=== PATIENT | male | born 1995 | race Caucasian/White ===

== ENCOUNTER 2016-09-17 11:23 | Emergency (ER) | payer OTHER ==
[2016-09-17 11:43] VITALS: RESP 18
[2016-09-17] MEDS ORDERED: NS 1,000 ML IV ONE ×2 (11:49→12:58)
[2016-09-17 12:33] LABS: % IMMATURE GRANULYOCYTES 0.4 % (0.0-1.1); ABSOLUTE IMMATURE GRANULOCYTES 0.05 10^3/uL (0.00-0.10); ADD DIFF? NO; ADD MORPH? NO; ADD SCAN? NO; ATYPICAL LYMPHOCYTE FLAG 10 (0-99); FRAGMENT RBC FLAG 0 (0-99); HEMATOCRIT 54.4 % (40.0-51.0); HEMOGLOBIN 17.7 g/dL (13.7-17.5); LEFT SHIFT FLG 0 (0-99); LIPEMIA HEMOLYSIS FLAG 80 (0-99); MEAN CELL HEMOGLOBIN 32.3 pg (27.9-34.1); MEAN CELL HEMOGLOBIN CONCENTR. 32.5 g/dL (32.4-36.7); MEAN CELL VOLUME 99.3 fL (81.5-99.8); MEAN PLATELET VOLUME 9.8 fL (8.7-11.7); PLATELET CLUMPS FLAG 0 (0-99); PLATELET COUNT 483 10^3/uL (150-400); RED BLOOD CELL COUNT 5.48 10^6/uL (4.40-6.38); RED CELL DISTRIBUTION WIDTH 12.3 % (11.5-15.2)
[2016-09-17 12:41] LABS: ANION GAP 31 mEq/L (8-16); CALCIUM 10.6 mg/dL (8.5-10.4); CARBON DIOXIDE 13 mEq/l (22-31); CHLORIDE 102 mEq/L (97-110); CREATININE 1.2 mg/dL (0.7-1.3); GLOMERULAR FILTRATION RATE > 60; GLUCOSE 126 mg/dL (70-100); POTASSIUM 4.4 mEq/L (3.5-5.2); SODIUM 146 mEq/L (134-144)
[2016-09-17] MEDS: levETIRAcetam 1,000 MG in NS 100 ML IV ONE ×2 (12:50→13:14)
--- NOTE | 2016-09-17 12:51 | EDPHY ---
H & P Stated Complaint: seizure - Personal History Current Tetanus/Diphtheria Vaccine: Yes Current Tetanus Diphtheria and Acellular Pertussis (TDAP): Yes Tetanus Vaccine Date: last 10 years - Medical/Surgical History Hx Asthma: No Hx Chronic Respiratory Disease: No Hx Diabetes: No Hx Cardiac Disease: No Hx Renal Disease: No Hx Cirrhosis: No Hx Alcoholism: No Hx HIV/AIDS: No Hx Splenectomy or Spleen Trauma: No Other PMH: concussions, Anxiety and seizures treated wt kepra - Social History Smoking Status: Current some day smoker Time Seen by Provider: 09/17/16 12:34 HPI/ROS: CHIEF COMPLAINT: Seizure HISTORY OF PRESENT ILLNESS: 21-year-old male history of seizure disorder, self discharged his Keppra a few months ago, states that he did not sleep well last evening and was consuming alcohol, this morning at breakfast he was sitting and had witnessed seizure, bit his tongue, generalized tonic-clonic movements, postictal. At the time I interviewed and examined states he is feeling 100% better. He has only complaint is abrasion to the right lateral tongue. No incontinence. No head injury. No back pain. No recent illness. PRIMARY CARE PROVIDER:neurologist in [place] and Dr. Rigo Gamez REVIEW OF SYSTEMS: A ten point review of systems was performed and is negative with the exception of the items mentioned in the HPI PAST MEDICAL & SURGICAL HISTORY: Seizure disorder SOCIAL HISTORY:no alcohol use last evening PHYSICAL EXAM (Prior to examination, patient consented to physical exam, hands were washed and my usual and customary physical exam procedures followed) 1) GENERAL: Well-developed, well-nourished, alert and oriented. Appears to be in no acute distress. 2) HEAD: Normocephalic, atraumatic 3) HEENT: Pupils equal, round, reactive to light bilaterally. Sclera anicteric. Nasopharynx, oropharynx, clear, no lesions.Right lateral tongue abrasion. Ears bilaterally with normal tympanic membranes. 4) NECK: Full range of motion, no meningeal signs. 5) LUNGS: Clear auscultation bilaterally, no wheezes, no rhonchi, no retractions. 6) HEART: Regular rate and rhythm, no murmur, no heave, no gallop. 7) ABDOMEN: No guarding, no rebound, no focal tenderness, negative McBurney's, negative [place]en[place]ro's, negative Rovsing's, negative peritoneal sign, 8) MUSCULOSKELETAL: Moving all extremities, no focal areas of tenderness, no obvious trauma. No peripheral edema or discoloration. 9) BACK: No CVA tenderness, no midline vertebral tenderness, no fluctuance, no step-off, no obvious trauma, no visual or palpable abnormality. 10) SKIN: No rash, no petechiae. 11) Psychiatric: Patient is oriented X 3, there is no agitation. 12) NEURO: Awake, alert, and oriented to person, place and time. Answers questions appropriately. There were no obvious focal neurologic abnormalities. No cerebellar dysfunction. Normal steady gait. Upper and lower extremities bilaterally with strength 5 / 5, reflexes 2+. DIFFERENTIAL DIAGNOSIS: in no particular include but limited to intracranial hemorrhage, medication noncompliance, seizure (Lay,Suha Francy) Constitutional: Initial Vital Signs Temperature (C) 36.8 C 09/17/16 11:39 Heart Rate 130 H 09/17/16 11:39 Respiratory Rate 18 09/17/16 11:39 Blood Pressure 144/95 H 09/17/16 11:39 O2 Sat (%) 96 09/17/16 11:39 O2 Delivery Mode Room Air Allergies/Adverse Reactions: No Known Allergies Allergy (Unverified 03/25/13 19:01) Home Medications: Medication Instructions Recorded Dextroamphetamine/Amphetamine 10 mg PO PRN 03/25/13 [Adderall 10 mg Tablet] Adderall 10 MG (RX) 10/28/15 Alprazolam 10/28/15 Propranolol HCl 10/28/15 levETIRAcetam [Keppra] 250 mg PO BID #40 tab 02/06/16 Medical Decision Making ED Course/Re-evaluation: 12:50 p.m.: This patient appears well, answering questions appropriately, not postictal. Does have a right lateral tongue abrasion which will be allowed to heal via secondary intention. He has been off of his Keppra for several months , discharged by the patient. Recommend he restart his usual regimen. Given loading dose in the emergency department. Recommend he get sleep when he returns home this afternoon. I suspect that the combination of medication noncompliance and poor sleep hygiene recently contributed to his breakthrough seizure. He feels comfortable being discharged. Discussed case with Dr. Priscilla Baum. At this time patient's vital signs recheck heart rate in the low 90s, systolic blood pressure 155. (Suha Chun) The patient was evaluated and managed by the physician recovery assistant. I have reviewed this chart and I agree with the findings and plan of care as documented , as indicated by my signature. I am the secondary supervising physician. ( Priscilla Baum) - Data Points Laboratory Results: Laboratory Results 09/17/16 11:25 09/17/16 11:25 Medications Given: Discontinued Medications Sodium Chloride (Ns) 1,000 mls @ 0 mls/hr IV ONCE ONE PRN Reason: Wide Open Stop: 09/17/16 11:50 Last Admin: 09/17/16 11:49 Dose: 1,000 mls Levetiracetam 1,000 mg/ Sodium (Chloride) 110 mls @ 440 mls/hr IV EDNOW ONE Stop: 09/17/16 13:02 Last Admin: 09/17/16 13:14 Dose: 110 mls Sodium Chloride (Ns) 1,000 mls @ 0 mls/hr IV ONCE ONE PRN Reason: Wide Open Stop: 09/17/16 12:59 Last Admin: 09/17/16 12:59 Dose: 1,000 mls Departure - Departure Disposition: Home, Routine, Self-Care Clinical Impression: Seizure Condition: Good Instructions: Epilepsy (ED) Additional Instructions: Take her Keppra as prescribed. Get some sleep. Referrals: Rigo Gamez MD [Medical Doctor] - 2-3 days, call for appt.
[2016-09-17 13:32] VITALS: BP 138/88; PULSE 95; TEMP 98.4; O2SAT 96
== END 2016-09-17 13:45 | disposition home or self-care (01) ==
LOC: EDUNIT#
DX: G40.909 Epilepsy, unspecified, not intractable, without status epilepticus (principal); F17.200 Nicotine dependence, unspecified, uncomplicated
CPT/HCPCS: 96365; J1953

== ENCOUNTER 2016-12-03 21:55 | Emergency (ER) | payer OTHER ==
--- NOTE | 2016-12-03 22:32 | EDPHY ---
H & P Time Seen by Provider: 12/03/16 22:21 HPI/ROS: CHIEF COMPLAINT: Right hand pain HISTORY OF PRESENT ILLNESS: This is a 21-year-old male presenting to the emergency department complaining of right hand pain after hitting a wooden fence yesterday night around 2100. Patient said he had increased swelling today with decreased movement, some abrasions to fingers. Reports tetanus up-to -date REVIEW OF SYSTEMS: Constitutional: No fever, no chills. Eyes: No discharge. No blurred vision Cardiovascular: No chest pain Musculoskeletal: No back pain. Right hand pain and swelling Skin: No rashes. Neurological: No headache. Smoking Status: Current some day smoker Physical Exam: General Appearance: Alert and no distress. Eyes: No pallor no injection. Neurology: No focal deficits. AAOx3. Acting appropriate Respiratory: Chest is nontender. Nonlabored respiratory effort Musculoskeletal: Neck is supple and nontender. Right hand swelling and tenderness noted to the 4th and 5th metacarpal abrasions noted to 3rd 4th and 5th digits. Decreased range of motion Extremities have full range of motion and are nontender. Skin: No rashes or lesions. Abrasions noted to 3rd 4th and 5th digits Constitutional: Initial Vital Signs Temperature (C) 36.7 C 12/03/16 21:56 Heart Rate 85 12/03/16 21:56 Respiratory Rate 18 12/03/16 21:56 Blood Pressure 119/70 12/03/16 21:56 O2 Sat (%) 95 12/03/16 21:56 O2 Delivery Mode Room Air Allergies/Adverse Reactions: No Known Allergies Allergy (Unverified 12/03/16 22:00) Home Medications: Medication Instructions Recorded Adderall 10 MG (RX) 10/28/15 Propranolol HCl 10/28/15 levETIRAcetam [Keppra] 250 mg PO BID #40 tab 02/06/16 oxyCODONE HCL/ACETAMINOPHEN 1 each PO PRN PRN #10 tablet 12/04/16 [Percocet 5-325 mg Tablet] Medical Decision Making Procedures: Procedure: reduction. The right 5th metacarpal was reduced using C-arm, no complications. Ortho glass splint placed. Post reduction the patient's neurovascular exam is normal. Post reduction x-ray demonstrates reduction shows improved alignment. The procedure was performed by myself. ED Course/Re-evaluation: Discussed the plan of care: X-ray of right hand positive for 5th metacarpal fracture displaced. Discussed with patient doing a post reduction and putting him in a splint to follow up with orthopedic hand specialist Differential Diagnosis: Other differential diagnosis considered but not limited to open fracture of metacarpal, and fracture of radius and metacarpal dislocation - Data Points Medications Given: Discontinued Medications Oxycodone/Acetaminophen (Percocet 5/325) 2 tab PO EDNOW ONE Stop: 12/04/16 00:03 Last Admin: 12/04/16 00:08 Dose: 2 tab Oxycodone/Acetaminophen (Percocet 5/325mg Prepack#4) 1 btl TAKEHOME EDNOW ONE Stop: 12/04/16 00:53 Last Admin: 12/04/16 01:06 Dose: 1 btl Departure - Departure Disposition: Home, Routine, Self-Care Clinical Impression: Fx metacarpal Condition: Good Instructions: Oxycodone/Acetaminophen (By mouth), Hand Fracture (ED), Boxer Fracture (ED) Additional Instructions: Discussed discharge instructions with patient 1. You given the number for orthopedic hand call on Monday for follow-up appointment 2. Leave ortho glass splint on hand until further evaluation 3. You can use ibuprofen as needed. Ice pack 15 minutes on every hour as needed for swelling 4. If any worsening symptoms increased swelling return to the ER Referrals: NONE *PRIMARY CARE P,. [Primary Care Provider] - As per Instructions Dorian Mora MD [Medical Doctor] - As per Instructions [facility],. [Clinic] - As per Instructions Prescriptions: oxyCODONE HCL/ACETAMINOPHEN [Percocet 5-325 mg Tablet] 1 each PO PRN PRN #10 tablet PRN Reason: Pain, Moderate
[2016-12-04] MEDS ORDERED: OXYCODONE/APAP 5/325 TAB PO ONE (00:02)
[2016-12-04] MEDS ORDERED: OXYCODONE/APAP 5/325 TAB ONE ×2 (00:06)
[2016-12-04] MEDS ORDERED: OXYCODONE/APAP 5/325MG PREPACK#4 BTL TAKEHOME ONE (00:52)
[2016-12-04 01:11] VITALS: BP 112/66; PULSE 70; RESP 14; TEMP 98.2; O2SAT 96
== END 2016-12-04 01:11 | disposition home or self-care (01) ==
PROC: 0PSPXZZ Reposition Right Metacarpal, External Approach (ICD-10-PCS; principal; 2016-12-03)
DX: S62.336A Displaced fracture of neck of fifth metacarpal bone, right hand, initial encounter for closed fracture (principal); F17.200 Nicotine dependence, unspecified, uncomplicated; W22.8XXA Striking against or struck by other objects, initial encounter

== ENCOUNTER 2016-12-26 20:55 | Emergency (ER) | payer OTHER ==
[2016-12-26 21:45] LABS: % IMMATURE GRANULYOCYTES 0.3 % (0.0-1.1); ABSOLUTE IMMATURE GRANULOCYTES 0.03 10^3/uL (0.00-0.10); ADD DIFF? NO; ADD MORPH? NO; ADD SCAN? NO; ATYPICAL LYMPHOCYTE FLAG 0 (0-99); FRAGMENT RBC FLAG 0 (0-99); HEMATOCRIT 45.1 % (40.0-51.0); HEMOGLOBIN 15.3 g/dL (13.7-17.5); LEFT SHIFT FLG 0 (0-99); LIPEMIA HEMOLYSIS FLAG 90 (0-99); MEAN CELL HEMOGLOBIN 32.5 pg (27.9-34.1); MEAN CELL HEMOGLOBIN CONCENTR. 33.9 g/dL (32.4-36.7); MEAN CELL VOLUME 95.8 fL (81.5-99.8); MEAN PLATELET VOLUME 9.3 fL (8.7-11.7); PLATELET CLUMPS FLAG 70 (0-99); PLATELET COUNT 301 10^3/uL (150-400); RED BLOOD CELL COUNT 4.71 10^6/uL (4.40-6.38)
--- NOTE | 2016-12-26 21:51 | EDPHY ---
HPI/HX/ROS/PE/MDM Narrative: CHIEF COMPLAINT: Suspected overdose HISTORY OF PRESENT ILLNESS: This patient is a 21 year old male with history of seizure disorder who presents to the Emergency Department via EMS for suspected overdose [No fever, chills, chest pain, shortness of breath, palpitations, vomiting, diarrhea, urinary complaints, headache, lightheadedness. ] REVIEW OF SYSTEMS: Aside from elements discussed in the HPI, a comprehensive 10-point review of systems was reviewed and is negative. PAST MEDICAL HISTORY: Seizure disorder (Adam), followed by Dr. Rigo Gamez. SOCIAL HISTORY: From [place]. PHYSICAL EXAM: VITAL SIGNS: Reviewed by me GENERAL: Well-developed, well-nourished, resting comfortably in no respiratory distress. HEENT: Atraumatic. Eyes: No icterus, no injection. Mouth: moist mucous membranes. No erythema or lesions. Neck: supple with no adenopathy. LUNGS: Clear to auscultation bilaterally, no wheezes, rhonchi or rales. CARDIAC: Regular rate and rhythm, no rubs, murmurs or gallops. ABDOMEN: Soft, nontender, nondistended, bowel sounds normal. BACK: No CVA tenderness. EXTREMITIES: No trauma. No edema. Range of motion is normal throughout. NEURO: Alert and oriented, grossly nonfocal. SKIN: Warm and dry, no rash. PSYCHIATRIC: Normal mentation, no agitation. Portions of this note were transcribed by a biomedical electronics technician. I personally performed a history, physical exam, medical decision making, and confirmed accuracy of information the transcribed note. - Data Points Laboratory Results: Laboratory Results 12/26/16 21:15 12/26/16 12/26/16 21:15 21:15 WBC 9.76 10^3/uL H 10^3/uL (3.80-9.50) RBC 4.71 10^6/uL 10^6/uL (4.40-6.38) Hgb 15.3 g/dL g/dL (13.7-17.5) Hct 45.1 % % (40.0-51.0) MCV 95.8 fL fL (81.5-99.8) MCH 32.5 pg pg (27.9-34.1) MCHC 33.9 g/dL g/dL (32.4-36.7) RDW 12.0 % % (11.5-15.2) Plt Count 301 10^3/uL 10^3/uL (150-400) MPV 9.3 fL fL (8.7-11.7) Neut % (Auto) 61.6 % % (39.3-74.2) Lymph % (Auto) 25.3 % % (15.0-45.0) [place] % (Auto) 11.0 % % (4.5-13.0) Eos % (Auto) 1.1 % % (0.6-7.6) Baso % (Auto) 0.7 % % (0.3-1.7) Nucleat RBC Rel Count 0.0 % % (0.0-0.2) Absolute Neuts (auto) 6.01 10^3/uL 10^3/uL (1.70-6.50) Absolute Lymphs (auto) 2.47 10^3/uL 10^3/uL (1.00-3.00) Absolute Monos (auto) 1.07 10^3/uL H 10^3/uL (0.30-0.80) Absolute Eos (auto) 0.11 10^3/uL 10^3/uL (0.03-0.40) Absolute Basos (auto) 0.07 10^3/uL 10^3/uL (0.02-0.10) Absolute Nucleated RBC 0.00 10^3/uL 10^3/uL (0-0.01) Immature Gran % 0.3 % % (0.0-1.1) Immature Gran # 0.03 10^3/uL 10^3/uL (0.00-0.10) Sodium Pending Potassium Pending Chloride Pending Carbon Dioxide Pending Anion Gap Pending BUN Pending Creatinine Pending Estimated GFR Pending Glucose Pending Calcium Pending Ethyl Alcohol Pending General Time Seen by Provider: 12/26/16 21:44 Initial Vital Signs: Initial Vital Signs Temperature (C) 36.4 C 12/26/16 21:03 Heart Rate 86 12/26/16 21:03 Respiratory Rate 13 12/26/16 21:03 Blood Pressure 123/87 H 12/26/16 21:03 O2 Sat (%) 98 12/26/16 21:03 O2 Delivery Mode Nasal Cannula O2 (L/minute) 2 Allergies/Adverse Reactions: No Known Allergies Allergy (Unverified 12/03/16 22:00) Home Medications: Medication Instructions Recorded Adderall 10 MG (RX) 10/28/15 Propranolol HCl 10/28/15 levETIRAcetam [Keppra] 250 mg PO BID #40 tab 02/06/16 oxyCODONE HCL/ACETAMINOPHEN 1 each PO PRN PRN #10 tablet 12/04/16 [Percocet 5-325 mg Tablet] Departure - Departure Referrals: Cuate Hsieh MD [Primary Care Provider] - As per Instructions Report Scribed for: Winsome Trejo Report Scribed by: Deepthi Darby Date of Report: 12/26/16 Time of Report: 21:51
[2016-12-26 21:56] LABS: ANION GAP 12 mEq/L (8-16); CALCIUM 9.7 mg/dL (8.5-10.4); CARBON DIOXIDE 28 mEq/l (22-31); CHLORIDE 99 mEq/L (97-110); CREATININE 1.4 mg/dL (0.7-1.3); ETHANOL SERUM < 10 mg/dL (0-10); GLOMERULAR FILTRATION RATE > 60; GLUCOSE 96 mg/dL (70-100); POTASSIUM 4.2 mEq/L (3.5-5.2); SODIUM 139 mEq/L (134-144)
[2016-12-26] MEDS ORDERED: NALOXONE HCL 0.4 MG/ML INJ ONE (22:10)
--- NOTE | 2016-12-26 22:10 | EDPHY ---
HPI/HX/ROS/PE/MDM Narrative: CHIEF COMPLAINT: Found unconscious, suspected overdose. HISTORY OF PRESENT ILLNESS: This patient is a 21 year old male with history of seizure disorder who presents to the Emergency Department via EMS after he was found unconscious in his apartment by his roommate. He was administered Narcan by [employer] upon their arrival. When he awoke, he admitted to taking one dose of Xanax, one dose of Benadryl, and one glass of wine today. He was given Percocet two weeks ago for pain secondary to a hand injury. Per EMS, they found an empty Percocet bottle at the time of their arrival but he denies taking any Percocet today. At time of arrival, the patient is drowsy but responsive to commands and mentating appropriately. He states that he was up all night last night working on a project and reports that this often triggers his seizures. He denies fever , chills, chest pain, shortness of breath, palpitations, vomiting, diarrhea, urinary complaints, headache, or lightheadedness. Denies depression, anxiety, or intent to harm himself or others. REVIEW OF SYSTEMS: Aside from elements discussed in the HPI, a comprehensive 10-point review of systems was reviewed and is negative. PAST MEDICAL HISTORY: Seizure disorder (Keppra) SOCIAL HISTORY: [employer] student. Originally from [place]. PHYSICAL EXAM: VITAL SIGNS: Reviewed by me, RR 9 at time of exam. GENERAL: Well-developed, well-nourished, somnolent. HEENT: Atraumatic. Eyes: PERRL, 3-4 mm reactive. No icterus, diffuse bilateral conjunctival injection, significant nystagmus worse with upward or leftward gaze. Mouth: moist mucous membranes. No erythema or lesions. Neck: supple with no adenopathy. LUNGS: Clear to auscultation bilaterally, no wheezes, rhonchi or rales. CARDIAC: Regular rate and rhythm, no rubs, murmurs or gallops. ABDOMEN: Soft, nontender, nondistended, bowel sounds normal. BACK: No CVA tenderness. EXTREMITIES: No trauma. No edema. Range of motion is normal throughout. NEURO: Alert and oriented, grossly nonfocal. SKIN: Warm and dry, no rash. PSYCHIATRIC: Normal mentation, no agitation. Portions of this note were transcribed by a medical transport specialist. I personally performed a history, physical exam, medical decision making, and confirmed accuracy of information the transcribed note. (Winsome Trejo) ED Course: 21-year-old male with history of seizures presents after he was found unconscious in his bedroom. He was effectively awoken with Narcan administered by [employer]. EMS suggests that the patient overdosed on a combination of Xanax, Benadryl, and Percocet; the patient, however, denies use of Percocet and states that he only had one dose each of Xanax and Benadryl. At time of presentation, he is somnolent but responsive and mentating appropriately. He has significant nystagmus when looking up and to the left, suggestive of toxicity. Will proceed with labs and tox screen. IV established. 1L IV NS administered. Narcan 0.4 mg was administered here with no appreciable response. ETOH screen is negative. 12-LEAD EKG: Please see the full report in [facility]. My interpretation: Sinus rhythm, narrow QRS, no rightward forces. Evaluation for suspected poisoning included unremarkable CBC and chemistries. Patient's alcohol level is negative. Patient denies adamantly taking additional doses of Percocet. Tylenol and salicylate levels were added. Patient's course will be assumed by Dr. Taina Siddiqi at change of shift. We will await urine tox screen and further improvement in the patient's mentation. At this time I suspect medication effect. No evidence of acute toxidrome. (Winsome Trejo) I took over care of this patient at 12:15 a.m.. This patient is here for a likely Benadryl overdose. He is not suicidal. Plan at this time is to observe the patient and when appropriately sober discharge to home. 3:20 a.m., the patient is up, sober, walking to the bathroom with a normal gait. He states that he was cramping for radiology test. He reports that he was trying to get a little sleep after being up for a long time and he took 1 Xanax in 1 Benadryl tablet he reports that he then fell asleep in his roommates were not able to get him up. He denies any suicidal ideation, depression or attempted overdose. Denies any other ingestion. He feels comfortable going home at this time. I feel he is safe for discharge. Follow-up and return to emergency department precautions reviewed. I discussed mixing prescription medications with him. All of his questions were answered. He was discharged in good condition. (Taina Siddiqi) MDM: Differential diagnoses for the patient's symptom complex was considered including but not limited to alcohol intoxication, narcotic overdose, benzodiazepine overdose, tricyclic overdose, illicit drug use, somulence secondary to medication side effect, antihistamine use. (Winsome Trejo) - Data Points Laboratory Results: Laboratory Results 12/26/16 21:15 12/26/16 21:15 12/26/16 12/26/16 12/26/16 21:15 21:15 21:00 WBC 9.76 10^3/uL H 10^3/uL (3.80-9.50) RBC 4.71 10^6/uL 10^6/uL (4.40-6.38) Hgb 15.3 g/dL g/dL (13.7-17.5) Hct 45.1 % % (40.0-51.0) MCV 95.8 fL fL (81.5-99.8) MCH 32.5 pg pg (27.9-34.1) MCHC 33.9 g/dL g/dL (32.4-36.7) RDW 12.0 % % (11.5-15.2) Plt Count 301 10^3/uL 10^3/uL (150-400) MPV 9.3 fL fL (8.7-11.7) Neut % (Auto) 61.6 % % (39.3-74.2) Lymph % (Auto) 25.3 % % (15.0-45.0) [place] % (Auto) 11.0 % % (4.5-13.0) Eos % (Auto) 1.1 % % (0.6-7.6) Baso % (Auto) 0.7 % % (0.3-1.7) Nucleat RBC Rel Count 0.0 % % (0.0-0.2) Absolute Neuts (auto) 6.01 10^3/uL 10^3/uL (1.70-6.50) Absolute Lymphs (auto) 2.47 10^3/uL 10^3/uL (1.00-3.00) Absolute Monos (auto) 1.07 10^3/uL H 10^3/uL (0.30-0.80) Absolute Eos (auto) 0.11 10^3/uL 10^3/uL (0.03-0.40) Absolute Basos (auto) 0.07 10^3/uL 10^3/uL (0.02-0.10) Absolute Nucleated RBC 0.00 10^3/uL 10^3/uL (0-0.01) Immature Gran % 0.3 % % (0.0-1.1) Immature Gran # 0.03 10^3/uL 10^3/uL (0.00-0.10) Sodium 139 mEq/L mEq/L (134-144) Potassium 4.2 mEq/L mEq/L (3.5-5.2) Chloride 99 mEq/L mEq/L (97-110) Carbon Dioxide 28 mEq/l mEq/l (22-31) Anion Gap 12 mEq/L mEq/L (8-16) BUN 16 mg/dL mg/dL (7-23) Creatinine 1.4 mg/dL H mg/dL (0.7-1.3) Estimated GFR > 60 Glucose 96 mg/dL mg/dL (70-100) Calcium 9.7 mg/dL mg/dL (8.5-10.4) Salicylates < 1.0 mg/dL L mg/dL (2.0-20.0) Acetaminophen < 10 mcg/mL L mcg/mL (10.0-30.0) Ethyl Alcohol < 10 mg/dL mg/dL (0-10) General Time Seen by Provider: 12/26/16 21:44 Initial Vital Signs: Initial Vital Signs Temperature (C) 36.4 C 12/26/16 21:03 Heart Rate 86 12/26/16 21:03 Respiratory Rate 13 12/26/16 21:03 Blood Pressure 123/87 H 12/26/16 21:03 O2 Sat (%) 98 12/26/16 21:03 O2 Delivery Mode Nasal Cannula O2 (L/minute) 2 Allergies/Adverse Reactions: No Known Allergies Allergy (Unverified 12/03/16 22:00) Home Medications: Medication Instructions Recorded Adderall 10 MG (RX) 10/28/15 Propranolol HCl 10/28/15 levETIRAcetam [Keppra] 250 mg PO BID #40 tab 02/06/16 oxyCODONE HCL/ACETAMINOPHEN 1 each PO PRN PRN #10 tablet 12/04/16 [Percocet 5-325 mg Tablet] Departure - Departure Disposition: [facility] Inpatient Acute Clinical Impression: Polysubstance abuse Altered mental status Qualifiers: Altered mental status type: somnolence Qualified Code(s): R40.0 - Somnolence Condition: Good Instructions: Polysubstance Abuse (ED) Additional Instructions: Read and follow provided instructions. Follow-up with your primary care physician in 1-2 days for re-evaluation as needed. Take her medication as prescribed only. Do not mix Xanax with Benadryl or other sedative medications. Do not drink alcohol while taking these medications. Return to the emergency department for worsening symptoms or other serious concerns. Referrals: Cuate Hsieh MD [Primary Care Provider] - As per Instructions
[2016-12-26 22:38] LABS: SALICYLATE < 1.0 mg/dL (2.0-20.0)
[2016-12-26 22:39] VITALS: O2SAT 96
--- NOTE | 2016-12-26 23:03 | CPEKG ---
Heart Rate: 82 RR Interval: 732 P-R Interval: 156 QRSD Interval: 94 QT Interval: 356 QTC Interval: 416 P [place]: 62 QRS [place]: 78 T Wave [place]: 59 EKG Severity - BORDERLINE ECG - EKG Impression: SINUS RHYTHM EKG Impression: INFERIOR Q WAVES, PROBABLY NORMAL VARIATION Electronically Signed By: Taina Siddiqi 27-Dec-2016 04:47:28
[2016-12-27 00:41] VITALS: RESP 16
[2016-12-27 03:30] VITALS: BP 111/66; PULSE 74; TEMP 97.9
== END 2016-12-27 03:52 | disposition home or self-care (01) ==
LOC: EDUNIT# → EDBD
DX: R40.0 Somnolence (principal); F19.10 Other psychoactive substance abuse, uncomplicated
CPT/HCPCS: G0480; J2310

== ENCOUNTER 2017-01-01 01:15 | Observation (INO) | payer OTHER ==
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
[2017-01-01] MEDS ORDERED: AMMONIA AROMATIC 1 EACH AMP IH ONE (01:51)
[2017-01-01] MEDS ORDERED: NS 1,000 ML IV ONE ×2 (01:58→02:32)
[2017-01-01] MEDS ORDERED: NALOXONE HCL 0.4 MG/ML INJ IVP ONE ×2 (02:02→02:21)
[2017-01-01 02:16] LABS: % IMMATURE GRANULYOCYTES 0.3 % (0.0-1.1); ABSOLUTE IMMATURE GRANULOCYTES 0.02 10^3/uL (0.00-0.10); ADD DIFF? NO; ADD MORPH? NO; ADD SCAN? NO; ATYPICAL LYMPHOCYTE FLAG 10 (0-99); FRAGMENT RBC FLAG 0 (0-99); HEMATOCRIT 41.1 % (40.0-51.0); HEMOGLOBIN 14.1 g/dL (13.7-17.5); LEFT SHIFT FLG 0 (0-99); LIPEMIA HEMOLYSIS FLAG 90 (0-99); MEAN CELL HEMOGLOBIN 31.5 pg (27.9-34.1); MEAN CELL HEMOGLOBIN CONCENTR. 34.3 g/dL (32.4-36.7); MEAN CELL VOLUME 91.9 fL (81.5-99.8); MEAN PLATELET VOLUME 9.3 fL (8.7-11.7); PLATELET CLUMPS FLAG 0 (0-99); PLATELET COUNT 337 10^3/uL (150-400); RED BLOOD CELL COUNT 4.47 10^6/uL (4.40-6.38); RED CELL DISTRIBUTION WIDTH 12.1 % (11.5-15.2)
[2017-01-01 02:25] LABS: ANION GAP 12 mEq/L (8-16); CALCIUM 9.6 mg/dL (8.5-10.4); CARBON DIOXIDE 24 mEq/l (22-31); CHLORIDE 103 mEq/L (97-110); CREATININE 1.1 mg/dL (0.7-1.3); ETHANOL SERUM < 10 mg/dL (0-10); GLOMERULAR FILTRATION RATE > 60; GLUCOSE 74 mg/dL (70-100); POTASSIUM 4.2 mEq/L (3.5-5.2); SALICYLATE < 1.0 mg/dL (2.0-20.0); SODIUM 139 mEq/L (134-144)
[2017-01-01] MEDS ORDERED: ONDANSETRON 4 MG/2 ML VIAL IVP PRN (09:44)
[2017-01-01] MEDS ORDERED: ACETAMINOPHEN 325 MG TAB PO PRN (09:44)
[2017-01-01] MEDS ORDERED: D5W 1/2 NS W/ 20 KCl/L 1,000 ML IV SCH (09:45)
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
[2017-01-01 15:32] VITALS: BP 103/54; PULSE 81; RESP 10; TEMP 97.5
[2017-01-01 17:21] VITALS: O2SAT 95
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
== END 2017-01-01 19:26 | disposition home or self-care (01) ==
LOC: F3N 09:15
PROVIDERS: ADMIT Internal Medicine; ATTEND Hospitalist
DX: G92 Toxic encephalopathy (principal); T42.4X1A Poisoning by benzodiazepines, accidental (unintentional), initial encounter; T45.0X1A Poisoning by antiallergic and antiemetic drugs, accidental (unintentional), initial encounter; T44.7X1A Poisoning by beta-adrenoreceptor antagonists, accidental (unintentional), initial encounter; T42.6X1A Poisoning by other antiepileptic and sedative-hypnotic drugs, accidental (unintentional), initial encounter; F19.129 Other psychoactive substance abuse with intoxication, unspecified; F41.9 Anxiety disorder, unspecified; F17.210 Nicotine dependence, cigarettes, uncomplicated; R56.9 Unspecified convulsions
CPT/HCPCS: G0378 ×2; 80305; G0480; J2310